=== PATIENT | female | born 1960 | race American Indian/Alaskan Native ===

== ENCOUNTER 2018-05-12 06:59 | Day surgery (SDC) | payer OTHER ==
[2018-05-11 12:07] VITALS: BMI 32.4
[2018-05-12] MEDS ORDERED: Propofol 10 mg/ml Inj (20 ML) ONE (09:14)
[2018-05-12] MEDS ORDERED: Lactated Ringer's 500 ML IV SCH (09:15)
--- NOTE | 2018-05-12 09:20 | CP.SDSHP ---
Same Day Surgery H & P - History Proposed Procedure: colonoscopy - Previous Medical/Surgical History Cardiac: Hypertension Endocrine/Metabolic: Diabetes - Allergies Allergies: Allergies No Known Allergies Allergy (Verified 04/19/14 11:49) - Physical Exam Vital Signs: Vital Signs 05/12/18 07:32 Temperature 96.9 F L Pulse Rate 18 L Respiratory 81 H Rate Blood Pressure 136/74 O2 Sat by Pulse 97 Oximetry - Date & Time Date: 05/12/18 Time: 09:20 Short Stay Discharge - Short Stay Discharge Admitting Diagnosis/Reason for Visit: ENCOUNTER FOR SCREENING FOR MALIGNANT NEOPLASM OF Disposition: HOME/ ROUTINE
[2018-05-12] MEDS ORDERED: Lactated Ringer's 500 ML IV ONE (09:25)
[2018-05-12 09:33] VITALS: O2SAT 100
[2018-05-12 10:09] VITALS: TEMP 97.4
[2018-05-12 11:04] VITALS: BP 165/83; PULSE 85; RESP 20
== END 2018-05-12 11:00 | disposition home or self-care (01) ==
LOC: C.ENDO 06:59
PROVIDERS: ATTEND Colon & Rectal Surgery
DX: Z12.11 Encounter for screening for malignant neoplasm of colon (principal); Z86.010 Personal history of colon polyps; K57.30 Diverticulosis of large intestine without perforation or abscess without bleeding
CPT/HCPCS: 45378; 82948; J2001; J2704; J7120